=== PATIENT | female | born 2000 | race Caucasian/White ===

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

== ENCOUNTER 2019-02-18 13:15 | Emergency (ER) | payer OTHER ==
[2019-02-18 14:12] VITALS: BP 131/79
--- NOTE | 2019-02-18 14:17 | UC ---
Throat Pain/Nasal Brad HPI - HPI Summary HPI Summary: Sinus sympoms for only 4 days, but pt has a hx of sinus infection developing quickly. Thick nasal coryza, sinus pressure, feels like she's wheezing and would like an albuterol inhaler. - History of Current Complaint Chief Complaint: UCGeneralIllness Stated Complaint: SINUS Time Seen by Provider: 02/18/19 14:16 Hx Obtained From: Patient Hx Last Menstrual Period: any day now ?: No Onset/Duration: Gradual Onset Severity: Mild Pain Intensity: 3 Cough: Sputum Appears - Occasional thick yellow/green sputum which she says is post-nasal drainage. Associated Signs & Symptoms: Positive: Sinus Discomfort, Nasal Discharge - Allergies/Home Medications Allergies/Adverse Reactions: Allergies Allergy/AdvReac Type Severity Reaction Status Date / Time kiwi Allergy Swelling Uncoded 02/18/19 14:12 Of Face,Lips,& Throat Home Medications: Home Medications Levothyroxine TAB* [Synthroid TAB*] 100 mcg PO DAILY 02/18/19 [History Confirmed 02/18/19] Omeprazole 40 mg PO DAILY 02/18/19 [History Confirmed 02/18/19] PMH/Surg Hx/FS Hx/Imm Hx Previously Healthy: Yes - Surgical History Surgical History: Yes Surgery Procedure, Year, and Place: cyst left fallopian tube removal. ACL repair right knee - Family History Known Family History: Negative: Cardiac Disease, Hypertension, Diabetes - Social History Alcohol Use: Rare Substance Use Type: None Smoking Status (MU): Never Smoked Tobacco Review of Systems All Other Systems Reviewed And Are Negative: Yes ENT: Positive: Nasal Discharge, Sinus Congestion, Sinus Pain/Tenderness Respiratory: Positive: Cough - Occasioanl cough Is Patient Immunocompromised?: No Physical Exam Triage Information Reviewed: Yes Appearance: Well-Appearing, No Pain Distress, Well-Nourished Vital Signs: Initial Vital Signs Temp 99.3 F 02/18/19 14:04 Pulse 99 02/18/19 14:04 Resp 20 02/18/19 14:04 BP 131/79 02/18/19 14:04 Pulse Ox 100 02/18/19 14:04 Vital Signs Reviewed: Yes Eyes: Positive: Conjunctiva Clear ENT: Positive: Hearing grossly normal, Pharynx normal, Nasal congestion, Nasal drainage - Yellow purulent nasal coryza, bilateral maxillary sinus tenderness, TMs normal, Uvula midline Neck: Positive: Supple, Nontender, No Lymphadenopathy Respiratory: Positive: Normal breath sounds, No respiratory distress, No accessory muscle use, Respiratory distress Cardiovascular: Positive: RRR, No Murmur, Pulses Normal, Brisk Capillary Refill Musculoskeletal Exam: Normal Neurological Exam: Normal Psychological Exam: Normal Psychological: Positive: Abnormal Response To Family Skin Exam: Normal Throat Pain/Nasal Course/Dx - Course Course Of Treatment: Pt comfortable here. I advised this is probably viral but because of her symptoms and her hx of sinus infections, I am going to treat her. I also gave her an albuterol inhaler to use with a definite follow up with PCP if no improvement. - Differential Dx/Diagnosis Provider Diagnosis: Sinusitis Discharge - Sign-Out/Discharge Documenting (check all that apply): Patient Departure All imaging exams completed and their final reports reviewed: No Studies - Discharge Plan Condition: Fair Disposition: HOME Prescriptions: Albuterol HFA INHALER* [Ventolin HFA Inhaler*] 2 puff INH Q4H PRN #1 mdi PRN Reason: Wheezing Amoxicillin PO (*) [Amoxicillin 875 MG (*)] 875 mg PO BID 10 Days #20 tab Patient Education Materials: Sinusitis (ED) Forms: *Work Release Referrals: Bee Mac NP [Primary Care Provider] - Additional Instructions: Increase fluids, Use your Albuterol inhaler 2 puffs every 4-6 hours as needed for wheezing, Follow up with your primary care provider if no improvement in 4- 5 days. - Billing Disposition and Condition Condition: FAIR Disposition: Home
== END 2019-02-18 14:31 | disposition home or self-care (01) ==
LOC: UCCORT 13:15
DX: J32.9 Chronic sinusitis, unspecified (principal)
CPT/HCPCS: 99212; G0463